=== PATIENT | female | born 1965 | race Caucasian/White ===

== ENCOUNTER 2017-02-01 19:26 | Inpatient (IN) | payer MEDICAID ==
[~2017-02-01] VITALS: Ht 160 cm; Wt 93.9 kg
[~2017-02-01 19:26] MED LIST: BENA10TA25 PO; CELE200C PO; FAMO-90 PO; FLUO20TA PO; METF-335 PO; OMEP20TC10 PO; [UNRECOGNIZED DRUG - CODE] PO; [UNRECOGNIZED DRUG - CODE] SUBQ
[2017-02-01 19:43] VITALS: BP 130/78
[2017-02-01] MEDS ORDERED: ACETAMINOPHEN EXTRA STRENGTH 500 MG TAB ONE (19:54)
[2017-02-01 20:59] LABS: BASOPHILS # (AUTO) 0.2 K/uL (0.00-0.22); BASOPHILS % (AUTO) 1.2 % (0.0-2.0); EOSINOPHILS # (AUTO) 0.2 K/uL (0-0.4); EOSINOPHILS % (AUTO) 1.1 % (0.0-4.0); HEMATOCRIT 39.9 % (36-48); HEMOGLOBIN 12.6 g/dL (12.0-16.0); MEAN CORPUSCULAR HEMOGLOBIN 27 pg (27-31); MEAN CORPUSCULAR HGB CONC 31 g/dL (33-37); MEAN CORPUSCULAR VOLUME 87 fL (80-94); MONOCYTES # (AUTO) 2.5 K/uL (0.8-1.0); NEUTROPHILS # (AUTO) 10.5 K/uL (1.8-7.7); NEUTROPHILS % (AUTO) 68.7 % (42.2-75.2); PLATELET COUNT (AUTO) 214 K/uL (140-450); RED BLOOD CELL COUNT(AUTO) 4.59 MIL/uL (4.20-5.40); RED CELL DISTRIBUTION WIDTH 13.5 % (11.6-13.7); WHITE BLOOD COUNT (AUTO) 15.4 K/uL (4.8-10.8)
[2017-02-01 21:13] LABS: ANION GAP 10.5 (8-16); CALCIUM 8.8 mg/dL (8.5-10.1); CARBON DIOXIDE 29.4 mmol/L (21-32); CREATININE 0.8 mg/dL (0.6-1.3); POTASSIUM 3.9 mmol/L (3.5-5.1)
[2017-02-01 21:28] LABS: TOTAL BILIRUBIN 0.7 mg/dL (0.0-1.0)
--- NOTE | 2017-02-01 21:28 | NUR ---
TO ER BED 4
--- NOTE | 2017-02-01 21:32 | NUR ---
51Y F BIB FAMILY C/O ABDOMINAL PAIN WITH NAUSEA AND VOMIT X 4 DAYS. HX,.ARTHRITIS, DM, HTN, LUNG FIBROSIS
[2017-02-01] MEDS ORDERED: NACL 0.9% 1,000 ML IV ONE (21:37)
[2017-02-01] MEDS ORDERED: ONDANSETRON 4 MG/2 ML VIAL IVP ONE (21:40)
[2017-02-01] MEDS ORDERED: MORPHINE SULFATE 4 MG/ML SYR IVP ONE (21:40)
[2017-02-01] MEDS ORDERED: DICYCLOMINE HCL LIQUID 20 MG, ALUMINUM HYD/MAG/SIMETHICONE 30 ML, LIDOCAINE VISCOUS 2% ... PO ONE ×3 (21:40)
--- NOTE | 2017-02-01 21:40 | NUR ---
Patient being evaluated by physician DR LOZADA at bedside.
[2017-02-01 22:21] LABS: INR 1.3 (0.8-1.2); PROTHROMBIN TIME 12.2 secs (10.8-13.4)
[2017-02-01 22:40] LABS: LACTIC ACID 1.2 mmol/L (0.4-2.0)
[2017-02-01 22:47] LABS: APPEARANCE,URINE CLOUDY (CLEAR); BILIRUBIN,URINE 1+ (NEGATIVE); BLOOD, URINE TRACE-L (NEGATIVE); COLOR,URINE YELLOW (YELLOW); LEUKOCYTE ESTERASE ,URINE 1+ (NEGATIVE); NITRITE, URINE POSITIVE (NEGATIVE); PH,URINE 6.5 (5.0-9.0); PROTEIN,URINE 1+ (NEGATIVE); UGLUCOSE TRACE (NEGATIVE)
[2017-02-01 22:58] LABS: ICTOTEST NEGATIVE (NEGATIVE)
[2017-02-01 22:59] LABS: BACTERIA,URINE 4+ /HPF (None Seen); SQUAMOUS EPITHELIAL CELL,UR 0-3 (FEW) /LPF (0-3 (FEW)); WBC,URINE 80-100 /HPF (0-5)
[2017-02-01] MEDS ORDERED: LEVOFLOXACIN 750 MG/D5W PREMIX 150 ML IV ONE (23:00)
[2017-02-01] MEDS ORDERED: HYDROcodone/APAP 5/325 MG 1 TAB TAB PO PRN (23:15)
[2017-02-01] MEDS ORDERED: DOCUSATE SODIUM 100 MG GELCAP PO PRN (23:15)
[2017-02-01] MEDS ORDERED: ACETAMINOPHEN 325 MG TAB PO PRN (23:15)
[2017-02-01] MEDS ORDERED: MORPHINE SULFATE 2 MG/ML SYR IVP PRN (23:15)
[2017-02-01] MEDS ORDERED: ONDANSETRON 4 MG/2 ML VIAL IVP PRN (23:15)
[2017-02-01] MEDS ORDERED: NACL 0.9% 2,000 ML IV ONE (23:15)
[2017-02-01] MEDS: NACL 0.9% 1,000 ML IV SCH (23:20)
[2017-02-01] MEDS ORDERED: ETANERCEPT 50 MG SUBQ SCH (23:20)
[2017-02-01] MEDS ORDERED: DEXTROSE 50% 50 ML SYR IVP PRN (23:25)
[2017-02-01 23:42] LABS: AMPHETAMINE, URINE NEG. ng/ml (NEG <=1000); BARBITURATE, URINE NEG. ng/ml (NEG <=200); BENZODIAZEPINE, URINE NEG. ng/mL (NEG <=200); CANNABINOID, URINE NEG. ng/mL (NEG <=50); COCAINE, URINE NEG. ng/mL (NEG <=300); OPIATE, URINE NEG. ng/mL (NEG <=2000); PHENCYCLIDINE SCREEN,URINE NEG. ng/mL (NEG <=25)
[2017-02-01 23:44] LABS: CHOL/HDL RATIO 2.6 (1-4.5)
--- NOTE | 2017-02-01 23:45 | NUR ---
Patient will be admitted to care of DR XAVIER . Admited to TELE 109A. Will go to room 109A . Belongings list completed. Report to EMMIE SUAREZ .
--- NOTE | 2017-02-01 23:45 | NUR ---
Pt report given to EMMIE SUAREZ. Transfer of care at this time.
[2017-02-01 23:54] LABS: FREE T4 (FREE THYROXINE) 1.42 ng/dL (0.76-1.46); MAGNESIUM 1.8 mg/dL (1.8-2.4); THYROID STIMULATING HORMONE 1.04 uIU/mL (0.34-3.76)
--- NOTE | 2017-02-02 00:20 | NUR ---
PATIENT ADMITTED TO UNIT FROM ED, PATIENT ABLE TO AMBULATE TO BED FROM [facility]. PATIENT IS AAOX4, ON ROOM AIR, NO SOB OR SIGN OF DISTRESS. IV TO RIGHT FA PATENT AND INTACT. SKIN INTACT. PATIENT DENIES PAIN AT THIS TIME, ORIENTED PATIENT TO ROOM AND CALL LIGHT, TELE MONITOR APPLIED TO PATIENT. DISCUSSED PLAN OF CARE WITH PATIENT, VERBALIZED UNDERSTANDING. SAFETY MEASURES CHECKED, CALL LIGHT WITHIN REACH. WILL CONTINUE TO MONITOR.
[2017-02-02 00:24] VITALS: BP 98/64
--- NOTE | 2017-02-02 00:30 | NUR ---
PATIENT RECEIVING US OF ABDOMEN.
--- NOTE | 2017-02-02 02:00 | NUR ---
PATIENT SLEEPING, NO SOB OR SIGN OF DISTRESS AT THIS TIME, CALL LIGHT WITHIN REACH. WILL CONTINUE TO MONITOR.
[2017-02-02 04:00] VITALS: BP 101/58
--- NOTE | 2017-02-02 04:10 | NUR ---
VITAL SIGNS STABLE, NO SOB OR SIGN OF DISTRESS, PROVIDED PATIENT WITH A BLANKET, CALL LIGHT WITHIN REACH WILL CONTINUE TO MONITOR.
[2017-02-02] MEDS: NACL 0.9% 1,000 ML IV SCH ×3 (06:06→19:20)
[2017-02-02] MEDS: BLOOD GLUCOSE MONITORING 1 DEV DEV FS SCH ×4 (06:40→21:44)
[2017-02-02] MEDS: INSULIN LISPRO SLIDING SCALE 100 UNITS/ML VIAL SUBQ PRN ×2 (06:40→13:02)
--- NOTE | 2017-02-02 07:30 | NUR ---
ENDORSED PATIENT TO DAY RN AT BEDSIDE, PATIENT IN STABLE CONDITION.
--- NOTE | 2017-02-02 07:35 | NUR ---
RECEIVED REPORT FROM ERICK OLEA. PT IS A/OX4, AMBULATORY, SKIN IS INTACT, IV ON THE RT FA, PATENT, INTACT, FLUSHING WELL, NO S/S OF RESPIRATORY DISTRESS OR DISCOMFORT NOTED, SAFETY/FALL PRECAUTIONS ARE IN PLACE, DISCUSSED PLAN OF CARE WITH PT, PT VERBALIZED UNDERSTANDING, CALL LIGHT IS WITHIN REACH, WILL CONTINUE TO MONITOR.
[2017-02-02 08:00] VITALS: BP 108/62
[2017-02-02] MEDS ORDERED: CELECOXIB 100 MG CAP PO SCH (09:00)
[2017-02-02] MEDS ORDERED: NON-FORMULARY ITEM (Omeprazole 20 MG) PO SCH (09:00)
--- NOTE | 2017-02-02 09:35 | NUR ---
PT IS SITTING IN BED HAVING BREAKFAST, CALL LIGHT IS WITHIN REACH.
--- NOTE | 2017-02-02 09:57 | NUR ---
PATIENT HAS BEEN SCREENED AND CATEGORIZED HIGH NUTRITION RISK. PATIENT WILL BE SEEN WITHIN 1-2 DAYS OF ADMISSION. 02/01/17-02/02/[address]
--- NOTE | 2017-02-02 10:13 | NUR ---
CM NOTE SPOKE WITH TYSON [facility]icate [facility] PH# [phone] AND SHE SAID REVIEWS SHOULD ONLY BE SENT TO THE PATIENT'S [facility]. SENT INITIAL REVIEW TO [facility] FAX# [phone] PH# [phone]
[2017-02-02] MEDS: LACTOBACILLUS RHAMNOSUS GG 1 EACH CAP PO SCH (10:20)
[2017-02-02] MEDS: LEVOFLOXACIN 500 MG/D5W PREMIX 100 ML IV SCH (10:20)
[2017-02-02] MEDS: PANTOPRAZOLE 40 MG TABEC PO SCH (10:21)
[2017-02-02] MEDS: metFORMIN 500 MG TAB PO SCH ×2 (10:21→21:45)
[2017-02-02] MEDS: BENAZEPRIL 10 MG TAB PO SCH (10:22)
[2017-02-02] MEDS: FAMOTIDINE 20 MG TAB PO SCH (10:23)
[2017-02-02] MEDS: FLUoxetine 20 MG CAP PO SCH (10:23)
[2017-02-02] MEDS: glyBURIDE 2.5 MG TAB PO SCH ×2 (10:23→21:46)
--- NOTE | 2017-02-02 11:26 | NUR ---
02/02/17 RD INITIAL ASSESSMENT COMPLETED PLEASE REFER TO NUTRITION ASSESSMENT UNDER CARE ACTIVITY FOR ESTIMATED NUTRITIONAL NEEDS. RD RECOMMENDATIONS: 1. CONTINUE ON CARDIAC DIET TOLERATED. RECOMMEND CHANGING DIET TO CCHO 60GM. 2. RD WILL F/U 3-5 DAYS; MODERATE RISK. OMEGA ECHOLS RD
--- NOTE | 2017-02-02 11:35 | NUR ---
PT IS RESTING IN BED WATCHING TV, CALL LIGHT WITHIN REACH, WILL CONTINUE TO MONITOR.
--- NOTE | 2017-02-02 13:45 | NUR ---
PT IS SLEEPING IN BED AT THIS TIME.
--- NOTE | 2017-02-02 15:45 | NUR ---
PT IS RESTING IN BED WATCHING TV, CALL LIGHT IS WITHIN REACH, WILL CONTINUE TO MONITOR.
[2017-02-02] MEDS ORDERED: LACTULOSE 20 GM/30 ML UDC PO SCH (16:15)
[2017-02-02] MEDS: SODIUM PHOS / POTASSIUM PHOS 1 PKT PDR PO SCH (16:59)
--- NOTE | 2017-02-02 17:00 | NUR ---
PT IS SITTING IN BED TALKING ON HER CELL PHONE.
[2017-02-02 18:00] VITALS: BP 98/63
--- NOTE | 2017-02-02 19:35 | NUR ---
ENDORSED PT TO ERICK SAUCEDO. FOR CONTINUITY OF CARE, PT STABLE AT THIS TIME. DAUGHTER IS AT BEDSIDE.
--- NOTE | 2017-02-02 19:40 | NUR ---
RECEIVED PT FROM AURELIO RN PT BARBADIAN SPEAKER AAOX4 AMBULATORY IV ON RT FA INFUSING WELL RELATIVES AT BED SIDE INITIAL ASSESSMENT DONE
[2017-02-02 20:00] VITALS: BP 106/53
--- NOTE | 2017-02-02 21:30 | NUR ---
BLOOD SUGAR TEST 113 NOT COVERAGE HS SNACK GIVEN PT HAS A GOOD APPETITE
--- NOTE | 2017-02-03 | NUR ---
PT REMAIN STABLE SLEEPING WELL IV ON RT ARM INFUSING WELL
[2017-02-03] MEDS: NACL 0.9% 1,000 ML IV SCH ×2 (02:24→10:47)
--- NOTE | 2017-02-03 03:00 | NUR ---
PT AMBULATES TO THE RESTROOM VOIDING WELL NOT DISTRESS NOTED
[2017-02-03 04:00] VITALS: BP 94/59
--- NOTE | 2017-02-03 05:54 | NUR ---
SLPONGE BATH GIVEN, LINEN CHANGED PT REMAIN STBLE NOT DISTRESS NOTED
[2017-02-03] MEDS: BLOOD GLUCOSE MONITORING 1 DEV DEV FS SCH (06:13)
--- NOTE | 2017-02-03 06:14 | NUR ---
BLOOD SUGAR TEST 113 PT GETTING SLEEP REMAIN STABLE
[2017-02-03 06:31] LABS: ANION GAP 8.9 (8-16); CALCIUM 8.3 mg/dL (8.5-10.1); CARBON DIOXIDE 29.2 mmol/L (21-32); CREATININE 0.7 mg/dL (0.6-1.3); POTASSIUM 4.1 mmol/L (3.5-5.1)
[2017-02-03 06:35] LABS: BASOPHILS # (AUTO) 0.2 K/uL (0.00-0.22); BASOPHILS % (AUTO) 2.2 % (0.0-2.0); EOSINOPHILS # (AUTO) 0.3 K/uL (0-0.4); EOSINOPHILS % (AUTO) 2.6 % (0.0-4.0); HEMATOCRIT 34.8 % (36-48); HEMOGLOBIN 11.4 g/dL (12.0-16.0); LYMPHOCYTES # (AUTO) 2.5 K/uL (2.5-16.5); LYMPHOCYTES % (AUTO) 25.5 % (20.5-51.1); MEAN CORPUSCULAR HEMOGLOBIN 28 pg (27-31); MEAN CORPUSCULAR HGB CONC 33 g/dL (33-37); MEAN CORPUSCULAR VOLUME 86 fL (80-94); MONOCYTES # (AUTO) 1.9 K/uL (0.8-1.0); MONOCYTES % (AUTO) 19.4 % (1.7-9.3); NEUTROPHILS % (AUTO) 50.3 % (42.2-75.2); PLATELET COUNT (AUTO) 188 K/uL (140-450); RED BLOOD CELL COUNT(AUTO) 4.05 MIL/uL (4.20-5.40); RED CELL DISTRIBUTION WIDTH 13.2 % (11.6-13.7)
[2017-02-03 06:36] LABS: MAGNESIUM 1.9 mg/dL (1.8-2.4); PHOSPHORUS 2.9 mg/dL (2.5-4.9)
--- NOTE | 2017-02-03 07:30 | NUR ---
RECEIVED PT IN BED. ASLEEP. AROUSABLE TO VOICE. ALERT, ORIENTEDX4. NO SOB NOTED. DENIES ANY PAIN OR DISCOMFORT AT THIS TIME. POSITIVE BOWEL SOUNDS NOTED ON FOUR QUADRANTS. AMBULATORY. SAFETY PRECAUTION IN PLACE. CALL LIGHT WITHIN REACH.
[2017-02-03 07:35] LABS: WHITE BLOOD COUNT (AUTO) 9.9 K/uL (4.8-10.8)
[2017-02-03 08:00] VITALS: BP 122/77
[2017-02-03] MEDS: BENAZEPRIL 10 MG TAB PO SCH (08:32)
[2017-02-03] MEDS: glyBURIDE 2.5 MG TAB PO SCH (08:32)
[2017-02-03] MEDS: FLUoxetine 20 MG CAP PO SCH (08:34)
[2017-02-03] MEDS: PANTOPRAZOLE 40 MG TABEC PO SCH (08:34)
[2017-02-03] MEDS: metFORMIN 500 MG TAB PO SCH (08:34)
[2017-02-03] MEDS: FAMOTIDINE 20 MG TAB PO SCH (08:34)
[2017-02-03] MEDS: LEVOFLOXACIN 500 MG/D5W PREMIX 100 ML IV SCH (08:35)
[2017-02-03] MEDS: SODIUM PHOS / POTASSIUM PHOS 1 PKT PDR PO SCH (08:36)
[2017-02-03] MEDS: LACTOBACILLUS RHAMNOSUS GG 1 EACH CAP PO SCH (08:37)
[2017-02-03] MEDS ORDERED: CELECOXIB 100 MG CAP PO SCH (09:00)
--- NOTE | 2017-02-03 11:00 | NUR ---
DR. EDMOND CAME TO SEE PT. AND MADE ORDER FOR DISCHARGE. DAUGHTER JEWEL AT BEDSIDE AND AWARE. PT DENIES ANY PAIN OR DISCOMFORT AT THIS TIME.
[2017-02-03] MEDS ORDERED: LEVO750T2 PO (11:14)
[2017-02-03] MEDS ORDERED: LACT1.4C PO (11:14)
[2017-02-03 11:16] VITALS: BP 119/68
--- NOTE | 2017-02-03 12:20 | NUR ---
HEALTH TEACHINGS AND DISCHARGE INSTRUCTIONS GIVEN TO PT. DAUGHTER JEWEL AT BEDSIDE. PT SIGNED DISCHARGE PAPERS. VERBALIZED UNDERSTANDING. ARM BAND REMOVED. IV CANNULA REMOVED AND INTACT. PT ON STABLE CONDITION. VITAL SIGNS STABLE. DENIES ANY PAIN OR DISCOMFORT AT THIS TIME NO SOB NOTED.
--- NOTE | 2017-02-03 12:27 | NUR ---
PT WHEELED OUTSIDE THE HOSPITAL PARKING LOT TO THEIR PRIVATE OWNED VEHICLE WITH DAUGHTER JEWEL.
== END 2017-02-03 12:20 | disposition home or self-care (01) | DRG 720 ==
LOC: MED 19:26 → MTU 23:17
PROVIDERS: ADMIT Family Medicine; ATTEND Family Medicine
DX: A41.9 Sepsis, unspecified organism (principal); N17.0 Acute kidney failure with tubular necrosis; E44.0 Moderate protein-calorie malnutrition; E11.65 Type 2 diabetes mellitus with hyperglycemia; E87.1 Hypo-osmolality and hyponatremia; E83.39 Other disorders of phosphorus metabolism; E66.9 Obesity, unspecified; K76.0 Fatty (change of) liver, not elsewhere classified; J47.9 Bronchiectasis, uncomplicated; Z68.36 Body mass index [BMI] 36.0-36.9, adult; I73.9 Peripheral vascular disease, unspecified; N30.91 Cystitis, unspecified with hematuria; R80.9 Proteinuria, unspecified; K21.9 Gastro-esophageal reflux disease without esophagitis; F32.9 Major depressive disorder, single episode, unspecified; M17.0 Bilateral primary osteoarthritis of knee; I10 Essential (primary) hypertension; N12 Tubulo-interstitial nephritis, not specified as acute or chronic; Z90.49 Acquired absence of other specified parts of digestive tract; Z63.5 Disruption of family by separation and divorce
CPT/HCPCS: 36415; 80048; 80053; 80305; 81001; 82140; 82150; 82948; 83036; 83605; 83690; 83735; 83880; 84100; 84439; 84443; 85025; 85610; 87040; 87081; 87086; 87186; 93925; 93970; 96361; 96365; 96375; 99285; J1815; J1956; J2270; J2405; J7030; Q0092

== ENCOUNTER 2017-02-21 19:58 | Emergency (ER) | payer MEDICAID ==
[~2017-02-21] VITALS: Ht 160 cm; Wt 92.5 kg
[~2017-02-21 19:58] MED LIST changes: -FAMO-90 PO; +LACT1.4C PO; +LEVO750T2 PO
[2017-02-21 20:05] VITALS: BP 119/64
--- NOTE | 2017-02-21 21:35 | NUR ---
TO ER OF3
--- NOTE | 2017-02-21 21:38 | NUR ---
Patient being evaluated by physician.
[2017-02-21] MEDS ORDERED: HYDROcodone/APAP 5/325 MG 1 TAB TAB PO ONE (21:45)
[2017-02-21 22:04] LABS: BASOPHILS # (AUTO) 0.3 K/uL (0.00-0.22); EOSINOPHILS # (AUTO) 0.4 K/uL (0-0.4); HEMATOCRIT 40.7 % (36-48); HEMOGLOBIN 13.1 g/dL (12.0-16.0); LYMPHOCYTES # (AUTO) 1.9 K/uL (2.5-16.5); MEAN CORPUSCULAR HEMOGLOBIN 27 pg (27-31); MEAN CORPUSCULAR HGB CONC 32 g/dL (33-37); MEAN CORPUSCULAR VOLUME 85 fL (80-94); MONOCYTES # (AUTO) 0.8 K/uL (0.8-1.0); MONOCYTES % (AUTO) 10.1 % (1.7-9.3); NEUTROPHILS # (AUTO) 4.4 K/uL (1.8-7.7); PLATELET COUNT (AUTO) 215 K/uL (140-450); RED BLOOD CELL COUNT(AUTO) 4.79 MIL/uL (4.20-5.40); RED CELL DISTRIBUTION WIDTH 13.8 % (11.6-13.7); WHITE BLOOD COUNT (AUTO) 7.8 K/uL (4.8-10.8)
[2017-02-21 22:12] LABS: APPEARANCE,URINE CLEAR (CLEAR); BILIRUBIN,URINE NEGATIVE (NEGATIVE); BLOOD, URINE NEGATIVE (NEGATIVE); COLOR,URINE YELLOW (YELLOW); LEUKOCYTE ESTERASE ,URINE NEGATIVE (NEGATIVE); NITRITE, URINE NEGATIVE (NEGATIVE); PH,URINE 6.5 (5.0-9.0); PROTEIN,URINE NEGATIVE (NEGATIVE); UGLUCOSE NEGATIVE (NEGATIVE); UROBILINOGEN,URINE 0.2 EU/dL (0.2 - 1)
[2017-02-21 22:21] LABS: ANION GAP 13.4 (8-16); CARBON DIOXIDE 29.7 mmol/L (21-32); CREATININE 0.8 mg/dL (0.6-1.3); POTASSIUM 4.1 mmol/L (3.5-5.1)
[2017-02-21 22:22] LABS: BACTERIA,URINE RARE /HPF (None Seen); RBC,URINE 0-3 /HPF (0-5); SQUAMOUS EPITHELIAL CELL,UR 0-3 /LPF (0-3 (FEW)); WBC,URINE 0-3 /HPF (0-5)
[2017-02-21 22:27] LABS: ALBUMIN 3.7 g/dL (3.4-5.0); TOTAL BILIRUBIN 0.3 mg/dL (0.0-1.0); TOTAL PROTEIN, SERUM 8.8 g/dL (6.4-8.2)
[2017-02-21 23:12] VITALS: BP 112/71
--- NOTE | 2017-02-21 23:12 | NUR ---
Patient discharged with v/s stable. Written and verbal after care instructions given and explained. Patient alert, oriented and verbalized understanding of instructions. Ambulatory with steady gait. All questions addressed prior to discharge. ID band removed. Patient advised to follow up with PMD. Rx of [place]ove 5/325 and Keflex given. Patient educated on indication of medication including possible reaction and side effects. Opportunity to ask questions provided and answered.
== END 2017-02-21 23:12 | disposition home or self-care (01) ==
LOC: MED 19:58
DX: R10.9 Unspecified abdominal pain (principal); I10 Essential (primary) hypertension; Z90.49 Acquired absence of other specified parts of digestive tract
CPT/HCPCS: 36415; 80053; 81001; 81025; 85025; 99284

== ENCOUNTER 2017-11-13 08:20 | Emergency (ER) | payer MEDICAID ==
[~2017-11-13] VITALS: Ht 160 cm; Wt 95.9 kg
[~2017-11-13 08:20] MED LIST changes: +ETAN50SO SUBQ; -[UNRECOGNIZED DRUG - CODE] SUBQ
[2017-11-13 08:23] VITALS: BP 137/80
--- NOTE | 2017-11-13 08:37 | NUR ---
PT AMBULATED TO BED 12.
--- NOTE | 2017-11-13 08:38 | NUR ---
52F BIB FAMILY C/O LEFT CHEST PAIN, RADIATES TO LEFT BACK X 3 DAYS, WORSENING WITH COUGH. PT STATES HAS COUGH X 3 WEEKS.HX: FIBROSIS, RA, DM, HTN.DENIES N/V/D; SKIN IS PINK/WARM/DRY; AAOX4 WITH EVEN AND STEADY GAIT; LUNGS CLEAR BL; PATIENT STATES PAIN OF 7/10 AT THIS TIME; VSS; PATIENT POSITIONED FOR COMFORT; HOB ELEVATED; BEDRAILS UP X2; BED DOWN. ER MD MADE AWARE OF PT STATUS.
[2017-11-13] MEDS ORDERED: NACL 0.9% 1,000 ML IV ONE (08:50)
[2017-11-13] MEDS ORDERED: ALBUTEROL SULFATE/IPRATROPIU 3 ML SOL IH ONE (08:50)
[2017-11-13] MEDS ORDERED: ONDANSETRON 4 MG/2 ML VIAL IVP ONE (08:50)
[2017-11-13] MEDS ORDERED: ASPIRIN 325 MG TAB PO ONE (08:50)
--- NOTE | 2017-11-13 09:01 | NUR ---
X RAY AT BEDSIDE.
[2017-11-13 09:25] LABS: BASOPHILS # (AUTO) 0.2 K/uL (0.00-0.22); BASOPHILS % (AUTO) 3.6 % (0.0-2.0); EOSINOPHILS # (AUTO) 0.1 K/uL (0-0.4); EOSINOPHILS % (AUTO) 1.1 % (0.0-4.0); HEMATOCRIT 39.3 % (36-48); HEMOGLOBIN 12.8 g/dL (12.0-16.0); LYMPHOCYTES # (AUTO) 0.9 K/uL (2.5-16.5); LYMPHOCYTES % (AUTO) 13.5 % (20.5-51.1); MEAN CORPUSCULAR HEMOGLOBIN 28 pg (27-31); MEAN CORPUSCULAR HGB CONC 33 g/dL (33-37); MEAN CORPUSCULAR VOLUME 84 fL (80-94); MONOCYTES % (AUTO) 15.4 % (1.7-9.3); NEUTROPHILS # (AUTO) 4.4 K/uL (1.8-7.7); NEUTROPHILS % (AUTO) 66.4 % (42.2-75.2); PLATELET COUNT (AUTO) 162 K/uL (140-450); RED BLOOD CELL COUNT(AUTO) 4.67 MIL/uL (4.20-5.40); RED CELL DISTRIBUTION WIDTH 13.9 % (11.6-13.7); WHITE BLOOD COUNT (AUTO) 6.6 K/uL (4.8-10.8)
[2017-11-13 09:35] LABS: ALBUMIN 3.5 g/dL (3.4-5.0); ANION GAP 14.3 (8-16); CARBON DIOXIDE 27.9 mmol/L (21-32); CREATININE 0.8 mg/dL (0.6-1.3); POTASSIUM 4.2 mmol/L (3.5-5.1); TOTAL BILIRUBIN 0.3 mg/dL (0.0-1.0)
--- NOTE | 2017-11-13 09:50 | NUR ---
PT C/O DENNISON & COUGH. T 100.3,BP 123/68 PULSE OX 92%, R24/MIN. NOTIFIED DR MORENO. WILL CONTINUE TO MONITOR.
[2017-11-13] MEDS ORDERED: ACETAMINOPHEN EXTRA STRENGTH 500 MG TAB PO ONE (09:55)
[2017-11-13] MEDS ORDERED: IBUPROFEN 800 MG TAB PO ONE (09:55)
[2017-11-13 10:39] VITALS: BP 110/65
--- NOTE | 2017-11-13 10:40 | NUR ---
Patient discharged with v/s stable. Written and verbal after care instructions given and explained. Patient alert, oriented and verbalized understanding of instructions. Ambulatory with steady gait. All questions addressed prior to discharge. ID band removed. Patient advised to follow up with PMD. Rx of AZITHROMYCIN& PROMETHAZINE given. Patient educated on indication of medication including possible reaction and side effects. Opportunity to ask questions provided and answered.
== END 2017-11-13 10:40 | disposition home or self-care (01) ==
LOC: MED 08:20
DX: J06.9 Acute upper respiratory infection, unspecified (principal); R74.0 Nonspecific elevation of levels of transaminase and lactic acid dehydrogenase [LDH]; E11.9 Type 2 diabetes mellitus without complications; K21.9 Gastro-esophageal reflux disease without esophagitis; I10 Essential (primary) hypertension
CPT/HCPCS: 36415; 71045; 80053; 82948; 84484; 85025; 94640; 96361; 96374; 99285; J2405; J7030; J7620; Q0092

== ENCOUNTER 2019-06-24 20:19 | Emergency (ER) | payer OTHER, MEDICAID ==
[~2019-06-24] VITALS: Ht 160 cm; Wt 93.2 kg
[2019-06-24 20:26] VITALS: BP 107/79
--- NOTE | 2019-06-24 20:37 | NUR ---
PT AMBULATED BACK TO LOBBY WITH STEADY GAIT. AWAITING AVAILABLE BED.
[2019-06-24 21:38] LABS: BASOPHILS % (AUTO) 0.3 % (0.0-2.0); EOSINOPHILS # (AUTO) 0.2 K/uL (0-0.4); EOSINOPHILS % (AUTO) 2.1 % (0.0-4.0); HEMATOCRIT 39.6 % (36-48); HEMOGLOBIN 12.5 g/dL (12.0-16.0); LYMPHOCYTES # (AUTO) 3.6 K/uL (2.5-16.5); LYMPHOCYTES % (AUTO) 31.1 % (20.5-51.1); MEAN CORPUSCULAR HEMOGLOBIN 27 pg (27-31); MEAN CORPUSCULAR HGB CONC 32 g/dL (33-37); MEAN CORPUSCULAR VOLUME 84.6 fL (80-94); MONOCYTES # (AUTO) 1.3 K/uL (0.8-1.0); MONOCYTES % (AUTO) 11.5 % (1.7-9.3); NEUTROPHILS # (AUTO) 6.3 K/uL (1.8-7.7); PLATELET COUNT (AUTO) 228 K/uL (140-450); RED BLOOD CELL COUNT(AUTO) 4.69 MIL/uL (4.20-5.40); RED CELL DISTRIBUTION WIDTH 16.2 % (11.6-13.7); WHITE BLOOD COUNT (AUTO) 11.4 K/uL (4.8-10.8)
[2019-06-24 21:57] LABS: ANION GAP 14.2 (8-16); CARBON DIOXIDE 27.5 mmol/L (21-32); CREATININE 0.7 mg/dL (0.6-1.3); POTASSIUM 3.7 mmol/L (3.5-5.1)
[2019-06-24 22:04] LABS: ALBUMIN 3.5 g/dL (3.4-5.0); TOTAL BILIRUBIN 0.3 mg/dL (0.0-1.0)
--- NOTE | 2019-06-24 22:11 | NUR ---
PT AMBULATED TO BED 03.
--- NOTE | 2019-06-24 22:39 | NUR ---
PT C/O LUQ PAIN 10/10 CONSTANT STABBING PAIN X1 DAY. PT STATES SHE FEELS "GASSY". PAIN PROVOKED BY MOVEMENT. PT STATES SHE FEELS THE PAIN WITH DEEP BREATHS. LAST BM TODAY. LUNG GLOVER CLEAR. ABD ROUND, SOFT, NONTENDER. PT PLACED ON O2 MONITOR. VSS. RR EVEN UNLABORED. PT CALM, WITH FAMILY MEMBER AT BEDSIDE. MEDHX: ARTHRITIS, DM, HTN, FIBROSIS, GERD ALLERGIES: DENIES MEDS: GLYBURIDE, METFORMIN, JARDIANCE.
[2019-06-24] MEDS ORDERED: KETOROLAC 60 MG/2 ML VIAL IM ONE (23:45)
--- NOTE | 2019-06-25 00:06 | NUR ---
PT RESTING IN BED WITH DAUGHTER AT BEDSIDE. VSS. NO COMPLAINTS AT THIS TIME.
[2019-06-25 01:10] VITALS: BP 107/79
--- NOTE | 2019-06-25 01:10 | NUR ---
Patient discharged with v/s stable. Written and verbal after care instructions given and explained. Patient alert, oriented and verbalized understanding of instructions. Ambulatory with steady gait. All questions addressed prior to discharge. ID band removed. Patient advised to follow up with PMD. Rx of PREDNISONE, MOTRIN, AND NORCO WAS given. Patient educated on indication of medication including possible reaction and side effects. Opportunity to ask questions provided and answered.
== END 2019-06-25 01:10 | disposition home or self-care (01) ==
LOC: MED 20:19
DX: R07.89 Other chest pain (principal); R05 Cough; J02.9 Acute pharyngitis, unspecified; I10 Essential (primary) hypertension; E11.9 Type 2 diabetes mellitus without complications; K21.9 Gastro-esophageal reflux disease without esophagitis; Z79.2 Long term (current) use of antibiotics; Z79.84 Long term (current) use of oral hypoglycemic drugs; Z90.49 Acquired absence of other specified parts of digestive tract; Z87.39 Personal history of other diseases of the musculoskeletal system and connective tissue
CPT/HCPCS: 36415; 71045; 80053; 84484; 85025; 96372; 99284; J1885

== ENCOUNTER 2022-09-13 17:32 | Emergency (ER) | payer MEDICARE, MEDICAID ==
[~2022-09-13] VITALS: Ht 162.6 cm; Wt 83.9 kg
[~2022-09-13 17:32] MED LIST changes: -ETAN50SO SUBQ; +ETAN50SY SUBQ; +OMEP-303 PO; -OMEP20TC10 PO
[2022-09-13 18:05] VITALS: BP 102/55
[2022-09-13 18:55] LABS: BASOPHILS % (AUTO) 0.3 % (0.0-2.0); EOSINOPHILS % (AUTO) 0.1 % (0.0-4.0); HEMOGLOBIN 11.7 g/dL (12.0-16.0); LYMPHOCYTES # (AUTO) 2.2 K/uL (2.5-16.5); LYMPHOCYTES % (AUTO) 31.6 % (20.5-51.1); MEAN CORPUSCULAR HEMOGLOBIN 26 pg (27-31); MEAN CORPUSCULAR HGB CONC 32 g/dL (33-37); MEAN CORPUSCULAR VOLUME 82.9 fL (80-94); MONOCYTES # (AUTO) 1.1 K/uL (0.8-1.0); MONOCYTES % (AUTO) 15.8 % (1.7-9.3); NEUTROPHILS # (AUTO) 3.7 K/uL (1.8-7.7); NEUTROPHILS % (AUTO) 52.2 % (42.2-75.2); PLATELET COUNT (AUTO) 176 K/uL (140-450); RED BLOOD CELL COUNT(AUTO) 4.46 MIL/uL (4.20-5.40); RED CELL DISTRIBUTION WIDTH 19.3 % (11.6-13.7); WHITE BLOOD COUNT (AUTO) 7.1 K/uL (4.8-10.8)
[2022-09-13 18:57] LABS: APPEARANCE,URINE CLEAR (CLEAR); BILIRUBIN,URINE NEGATIVE (NEGATIVE); BLOOD, URINE NEGATIVE (NEGATIVE); COLOR,URINE YELLOW (YELLOW); LEUKOCYTE ESTERASE ,URINE NEGATIVE (NEGATIVE); NITRITE, URINE NEGATIVE (NEGATIVE); UGLUCOSE 3+ (NEGATIVE)
[2022-09-13] MEDS: NACL 0.9% 1,000 ML IV ONE (19:00)
[2022-09-13] MEDS: ONDANSETRON 4 MG/2 ML VIAL IVP ONE (19:01)
[2022-09-13] MEDS: KETOROLAC 15 MG/ML VIAL IVP ONE (19:02)
[2022-09-13 19:18] LABS: ALBUMIN 3.1 g/dL (3.4-5.0); ANION GAP 13.8 (8-16); CARBON DIOXIDE 27.5 mmol/L (21-32); POTASSIUM 4.3 mmol/L (3.5-5.1); TOTAL BILIRUBIN 0.3 mg/dL (0.0-1.0)
[2022-09-13] MEDS ORDERED: ONDA-188 PO (19:43)
[2022-09-13] MEDS ORDERED: TAM75 PO (19:43)
[2022-09-13] MEDS ORDERED: BENZ200C4 PO (19:43)
[2022-09-13] MEDS ORDERED: NIRM1TAB PO (19:43)
[2022-09-13 20:32] VITALS: BP 99/62
== END 2022-09-13 20:31 | disposition home or self-care (01) ==
LOC: MED 17:32
DX: U07.1 COVID-19 (principal); J11.1 Influenza due to unidentified influenza virus with other respiratory manifestations; E11.9 Type 2 diabetes mellitus without complications; K21.9 Gastro-esophageal reflux disease without esophagitis; I10 Essential (primary) hypertension; Z79.899 Other long term (current) drug therapy; Z79.84 Long term (current) use of oral hypoglycemic drugs
CPT/HCPCS: 36415; 71045; 80053; 81003; 85025; 87426; 87804; 96374; 96375; 99284; J1885; J2405

== ENCOUNTER 2022-10-11 18:47 | Emergency (ER) | payer MEDICARE, MEDICAID ==
[~2022-10-11] VITALS: Ht 162.6 cm; Wt 80.7 kg
[~2022-10-11 18:47] MED LIST changes: +BENZ200C4 PO; +NIRM1TAB PO; +ONDA-188 PO; +TAM75 PO
[2022-10-11 18:57] VITALS: BP 138/73
[2022-10-11 19:35] LABS: BASOPHILS % (AUTO) 0.3 % (0.0-2.0); EOSINOPHILS % (AUTO) 0.3 % (0.0-4.0); HEMATOCRIT 34.7 % (36-48); HEMOGLOBIN 11.6 g/dL (12.0-16.0); LYMPHOCYTES # (AUTO) 2.1 K/uL (2.5-16.5); LYMPHOCYTES % (AUTO) 21.7 % (20.5-51.1); MEAN CORPUSCULAR HEMOGLOBIN 27 pg (27-31); MEAN CORPUSCULAR HGB CONC 33 g/dL (33-37); MEAN CORPUSCULAR VOLUME 81.1 fL (80-94); MONOCYTES % (AUTO) 10.6 % (1.7-9.3); NEUTROPHILS # (AUTO) 6.6 K/uL (1.8-7.7); NEUTROPHILS % (AUTO) 67.1 % (42.2-75.2); PLATELET COUNT (AUTO) 321 K/uL (140-450); RED BLOOD CELL COUNT(AUTO) 4.27 MIL/uL (4.20-5.40); RED CELL DISTRIBUTION WIDTH 19.4 % (11.6-13.7); WHITE BLOOD COUNT (AUTO) 9.9 K/uL (4.8-10.8)
[2022-10-11 20:07] LABS: ALBUMIN 3.8 g/dL (3.4-5.0); ANION GAP 15.7 (8-16); CREATININE 0.8 mg/dL (0.6-1.3); POTASSIUM 4.7 mmol/L (3.5-5.1); TOTAL BILIRUBIN 0.5 mg/dL (0.0-1.0)
[2022-10-11] MEDS: ONDANSETRON 4 MG ODT PO ONE (20:27)
[2022-10-11] MEDS: KETOROLAC 60 MG/2 ML VIAL IM ONE (20:27)
--- NOTE | 2022-10-11 20:45 | NUR ---
ER physcian at bedside assessing patient.
--- NOTE | 2022-10-11 20:50 | NUR ---
Patient is A/Ox4, chest rise and fall symmetrical, no c/o pain or s/s of distress, on monitor.
[2022-10-11] MEDS ORDERED: ONDA-188 SL (20:53)
[2022-10-11] MEDS ORDERED: TRAM-748 PO (20:53)
[2022-10-11 20:57] VITALS: BP 128/71
== END 2022-10-11 20:58 | disposition home or self-care (01) ==
LOC: MED 18:47
DX: R10.13 Epigastric pain (principal); R11.2 Nausea with vomiting, unspecified; E11.9 Type 2 diabetes mellitus without complications; K21.9 Gastro-esophageal reflux disease without esophagitis; I10 Essential (primary) hypertension; Z90.49 Acquired absence of other specified parts of digestive tract; Z79.899 Other long term (current) drug therapy; Z79.891 Long term (current) use of opiate analgesic; Z79.2 Long term (current) use of antibiotics
CPT/HCPCS: 36415; 80053; 82150; 83690; 85025; 96372; 99283; J1885; Q0162